=== PATIENT | male | born 1985 | race Caucasian/White ===

== ENCOUNTER 2021-06-27 08:39 | Outpatient (CLI) | payer OTHER ==
[2021-06-27] MEDS ORDERED: Iopamidol 370 76% 100 ML VIAL ONE (09:42)
== END 2021-06-27 08:40 | disposition home or self-care (01) ==
LOC: BICCT 08:39
PROVIDERS: ATTEND Internal Medicine Hematology & Oncology
DX: C20 Malignant neoplasm of rectum (principal); R97.0 Elevated carcinoembryonic antigen [CEA]; M89.9 Disorder of bone, unspecified; N13.5 Crossing vessel and stricture of ureter without hydronephrosis; K76.89 Other specified diseases of liver; N32.89 Other specified disorders of bladder; Z98.890 Other specified postprocedural states
CPT/HCPCS: 71260; 74177

== ENCOUNTER 2021-09-11 14:47 | Observation (INO) | payer OTHER ==
[~2021-09-11 14:47] MED LIST: Iopamidol-370 76% 500 ML 1 ML ONE
[2021-09-11] MEDS ORDERED: HYDROmorphone 0.5 MG/0.5 ML SYRINGE ONE (16:36)
[2021-09-11 16:45] LABS: Hemoglobin 11.6 g/dL (14.0-18.0); Mean Corpuscular HGB CONC 33.3 g/dL (32.0-36.0); Mean Corpuscular Hemoglobin 34.7 pg (27.0-31.0); Mean Platelet Volume 7.3 fL (7.4-10.4); Platelet Count 259 thou/uL (130-400); RBC Distribution Width 16.9 % (11.5-14.5); Red Blood Cell (RBC) Count 3.35 mill/uL (4.70-6.10); White Blood Cell (WBC) Count 15.5 thou/uL (4.8-10.8)
[2021-09-11 16:51] LABS: ALT (SGPT) 62 U/L (8-55); AST (SGOT) 61 U/L (5-34); Albumin 3.9 g/dL (3.5-5.0); Alkaline Phosphatase 283 U/L (40-110); Anion Gap 14 mmol/L (10-20); BUN (Urea Nitrogen) 19 mg/dL (8.9-20.6); Calc. Creatinine Clearance 0 mL/min (70-130); Calcium 10.1 mg/dL (7.8-10.44); Carbon Dioxide 25 mmol/L (22-29); Chloride 96 mmol/L (98-107); Globulin 3.7 g/dL (2.4-3.5); Glucose 102 mg/dL (70-105); Potassium 4.4 mmol/L (3.5-5.1); Protein, Total 7.6 g/dL (6.0-8.3); Sodium 131 mmol/L (136-145)
[2021-09-11 17:10] LABS: Band 14 % (5-11); Lymphocytes 3 % (21-51); MDiff Complete? YES; Monocytes 22 % (0-10); Neutrophil 57 % (42-75); Platelet Morphology Comment Appears Adequate; RBC Morphology Normal; Reactive Lymphocytes 4 % (0-10)
[2021-09-11] MEDS ORDERED: Ketorolac Tromethamine 30 MG/ML VIAL ONE (17:49)
[2021-09-11] MEDS ORDERED: HYDROmorphone 2 MG TAB PO SCH (19:30)
[2021-09-11 22:34] LABS: Bacteria/HPF None Seen HPF (None Seen); Bilirubin Negative (Negative); Blood, Urine Negative (Negative); Clarity Clear (Clear); Glucose, Urine (Dipstick) Normal (Negative); Ketone, Urine Negative (Negative); Leukocyte Negative Leu/uL (Negative); Nitrite Negative (Negative); Protein, Urine (Dipstick) 70 mg/dL (Neg-Trace); Squamous Epithelial 0-3 HPF (0-3)
[2021-09-11 22:36] LABS: Specific Gravity, Urine Greater than 1.065 (1.002-1.036); WBC/HPF 0-3 HPF (0-3)
[2021-09-11 22:46] LABS: SARS-CoV-2 NAA Rapid Test Not Detected (NotDetected)
[2021-09-11] MEDS ORDERED: Morphine 4 MG/ML VIAL SLOW IVP PRN (22:46)
[2021-09-11] MEDS ORDERED: Ondansetron PF 4 MG/2 ML Vial IVP PRN (23:00)
[2021-09-11] MEDS ORDERED: Ondansetron ODT 4 MG TAB SL PRN (23:00)
[2021-09-12] MEDS ORDERED: HYDROmorphone 0.5 MG/0.5 ML SYRINGE SLOW IVP PRN (00:06)
[2021-09-12 00:11] VITALS: BMI 29.8
[2021-09-12] MEDS ORDERED: Senokot 8.6 MG TAB PO PRN (01:00)
[2021-09-12] MEDS: HYDROmorphone 2 MG TAB PO PRN ×8 (01:06→22:19)
[2021-09-12] MEDS ORDERED: Sodium Chloride 0.9% 1,000 ML IV SCH (01:45)
[2021-09-12] MEDS: Acetaminophen 325 MG TAB PO PRN ×2 (03:00→16:23)
[2021-09-12] MEDS ORDERED: Ketorolac Tromethamine 30 MG/ML VIAL IVP PRN (04:14)
[2021-09-12 07:19] LABS: Mean Corpuscular HGB CONC 33.3 g/dL (32.0-36.0); Mean Corpuscular Hemoglobin 35.2 pg (27.0-31.0); Mean Platelet Volume 7.6 fL (7.4-10.4); Platelet Count 189 thou/uL (130-400); RBC Distribution Width 16.8 % (11.5-14.5); Red Blood Cell (RBC) Count 2.85 mill/uL (4.70-6.10); White Blood Cell (WBC) Count 9.3 thou/uL (4.8-10.8)
[2021-09-12 07:26] LABS: Anion Gap 13 mmol/L (10-20); BUN (Urea Nitrogen) 20 mg/dL (8.9-20.6); Calc. Creatinine Clearance 123 mL/min (70-130); Calcium 9.3 mg/dL (7.8-10.44); Carbon Dioxide 24 mmol/L (22-29); Chloride 98 mmol/L (98-107); Glucose 119 mg/dL (70-105); Sodium 131 mmol/L (136-145)
[2021-09-12] MEDS ORDERED: Enoxaparin Sodium 40 MG/0.4 ML SYRINGE SC SCH (09:00)
[2021-09-12 10:26] LABS: Band 23 % (5-11); Lymphocytes 5 % (21-51); MDiff Complete? YES; Monocytes 17 % (0-10); Neutrophil 54 % (42-75); Platelet Morphology Comment Appears Adequate; RBC Morphology Normal; Reactive Lymphocytes 1 % (0-10)
[2021-09-12] MEDS ORDERED: HYDROcodone/Acetaminophen 10/325 mg Tablet PO PRN (13:05)
[2021-09-12] MEDS ORDERED: Acetaminophen 500 MG TAB PO SCH (14:00)
[2021-09-12] MEDS ORDERED: Enoxaparin Sodium 120 MG/0.8 ML SYRINGE SC SCH (16:30)
[2021-09-12] MEDS ORDERED: Ketorolac Tromethamine 10 MG TAB PO SCH (19:15)
[2021-09-12] MEDS ORDERED: Non-Formulary Item 1 EACH (Zolpidem Tartrate [Zolpidem Tartrate] 10 MG Tablet) PO SCH (21:00)
[2021-09-12] MEDS ORDERED: Zolpidem Tartrate 5 MG TAB PO SCH (21:00)
[2021-09-13] MEDS: Ketorolac Tromethamine 10 MG TAB PO SCH ×3 (00:32→12:04)
[2021-09-13] MEDS: HYDROmorphone 2 MG TAB PO PRN ×6 (00:32→14:25)
[2021-09-13] MEDS ORDERED: Lidocaine 5% Patch TD SCH (09:00)
[2021-09-13] MEDS ORDERED: Enoxaparin Sodium 120 MG/0.8 ML SYRINGE SC SCH (09:00)
[2021-09-13] MEDS ORDERED: Enoxaparin Sodium 30 MG/0.3 ML SYRINGE SC SCH (09:00)
[2021-09-13] MEDS ORDERED: Citalopram 20 MG TAB PO SCH (09:00)
[2021-09-13 12:51] VITALS: BP 136/67; TEMP 97.5
[2021-09-13 14:31] LABS: Hemoglobin 10.5 g/dL (14.0-18.0); Mean Corpuscular HGB CONC 34.5 g/dL (32.0-36.0); Mean Corpuscular Hemoglobin 36.7 pg (27.0-31.0); Mean Platelet Volume 7.4 fL (7.4-10.4); Platelet Count 219 thou/uL (130-400); RBC Distribution Width 16.6 % (11.5-14.5); Red Blood Cell (RBC) Count 2.86 mill/uL (4.70-6.10); White Blood Cell (WBC) Count 7.2 thou/uL (4.8-10.8)
[2021-09-13 14:41] LABS: ALT (SGPT) 85 U/L (8-55); AST (SGOT) 56 U/L (5-34); Albumin 3.3 g/dL (3.5-5.0); Alkaline Phosphatase 231 U/L (40-110); Anion Gap 15 mmol/L (10-20); BUN (Urea Nitrogen) 15 mg/dL (8.9-20.6); Bilirubin, Total 0.4 mg/dL (0.2-1.2); Calc. Creatinine Clearance 134 mL/min (70-130); Calcium 9.7 mg/dL (7.8-10.44); Carbon Dioxide 25 mmol/L (22-29); Chloride 98 mmol/L (98-107); Globulin 3.5 g/dL (2.4-3.5); Glucose 100 mg/dL (70-105); Potassium 4.1 mmol/L (3.5-5.1); Protein, Total 6.8 g/dL (6.0-8.3); Sodium 134 mmol/L (136-145)
[2021-09-13 14:43] LABS: Anisocytosis SLIGHT = 6-15 cells (100X) (0-5/hpf); Band 4 % (5-11); Lymphocytes 13 % (21-51); MDiff Complete? YES; Macrocytosis SLIGHT = 6-15 cells (100X) (0-5/hpf); Monocytes 15 % (0-10); Neutrophil 68 % (42-75); Platelet Morphology Comment Appears Adequate; Polychromasia SLIGHT = 2-3 cells (100X) (0-2/hpf)
[2021-09-13] MEDS ORDERED: Transdermal Patch Removal TOP SCH (21:00)
== END 2021-09-13 15:12 | disposition home or self-care (01) ==
LOC: ERS 14:47 → MSONC 21:42
PROVIDERS: ADMIT Internal Medicine; ATTEND Family Medicine
DX: G89.3 Neoplasm related pain (acute) (chronic) (principal); M79.604 Pain in right leg; R10.31 Right lower quadrant pain; R10.2 Pelvic and perineal pain; C20 Malignant neoplasm of rectum; C79.89 Secondary malignant neoplasm of other specified sites; C77.5 Secondary and unspecified malignant neoplasm of intrapelvic lymph nodes; M54.31 Sciatica, right side; N13.30 Unspecified hydronephrosis; N28.1 Cyst of kidney, acquired; K76.0 Fatty (change of) liver, not elsewhere classified; R91.8 Other nonspecific abnormal finding of lung field; F17.210 Nicotine dependence, cigarettes, uncomplicated; D72.825 Bandemia; D53.9 Nutritional anemia, unspecified; E87.1 Hypo-osmolality and hyponatremia; Z79.899 Other long term (current) drug therapy; Z88.5 Allergy status to narcotic agent; Z88.8 Allergy status to other drugs, medicaments and biological substances; Z90.49 Acquired absence of other specified parts of digestive tract; Z93.3 Colostomy status; Z20.822 Contact with and (suspected) exposure to COVID-19
CPT/HCPCS: 36415; 74177; 80048; 80053; 81003; 81015; 85025; 93005; 96372; 96374; 96375; 96376; G0378; J1170; J1650; J1885; J7050; Q9967; U0002

== ENCOUNTER 2021-10-12 02:40 | Observation (INO) | payer MEDICAID, OTHER ==
[2021-10-12 05:58] LABS: Anion Gap 11 mmol/L (10-20); BUN (Urea Nitrogen) 11 mg/dL (8.9-20.6); Calc. Creatinine Clearance 0 mL/min (70-130); Calcium 9.9 mg/dL (7.8-10.44); Carbon Dioxide 32 mmol/L (22-29); Chloride 96 mmol/L (98-107); Glucose 89 mg/dL (70-105); Potassium 3.8 mmol/L (3.5-5.1); Sodium 135 mmol/L (136-145)
[2021-10-12 06:58] LABS: Bilirubin Negative (Negative); Blood, Urine 3+ (Negative); Clarity Turbid (Clear); Glucose, Urine (Dipstick) Normal (Negative); Ketone, Urine Negative (Negative); Leukocyte 25 Leu/uL (Negative); Nitrite Negative (Negative); Protein, Urine (Dipstick) 50 mg/dL (Neg-Trace); RBC/HPF Greater than 50 HPF (0-3); Specific Gravity, Urine 1.014 (1.002-1.036); Squamous Epithelial None Seen HPF (0-3); Urobilinogen Normal mg/dL (Less than 2); WBC/HPF Greater than 50 HPF (0-3); pH, Urine 6.5 (5.0-9.0)
[2021-10-12 07:01] LABS: Bacteria/HPF 1+ HPF (None Seen)
[2021-10-12] MEDS ORDERED: cefTRIAXone\\ROCEPHIN 2 GM VIAL ONE (08:58)
[2021-10-12] MEDS ORDERED: fentaNYL 50 mcg/hour Patch TD SCH (09:00)
[2021-10-12 09:22] LABS: #Eosinphils 0.2 thou/uL (0.0-0.7); #Lymphocytes 0.8 thou/uL (1.20-3.40); #Monocytes 1.2 thou/uL (0.11-0.59); #Neutrophils 7.2 thou/uL (1.40-6.50); %Basophils 0.3 % (0.0-1.0); %Eosinophils 2.3 % (0.0-10.0); %Lymphocytes 8.9 % (21.0-51.0); %Monocytes 12.6 % (0.0-10.0); %Neutrophils 75.9 % (42.0-75.0); Hemoglobin 10.3 g/dL (14.0-18.0); Mean Corpuscular HGB CONC 33.3 g/dL (32.0-36.0); Mean Corpuscular Hemoglobin 34.9 pg (27.0-31.0); Mean Platelet Volume 7.1 fL (7.4-10.4); Platelet Count 419 thou/uL (130-400); RBC Distribution Width 15.1 % (11.5-14.5); Red Blood Cell (RBC) Count 2.94 mill/uL (4.70-6.10); White Blood Cell (WBC) Count 9.5 thou/uL (4.8-10.8)
[2021-10-12] MEDS ORDERED: Senokot S 8.6-50 MG TAB PO PRN (09:32)
[2021-10-12] MEDS ORDERED: Ondansetron PF 4 MG/2 ML Vial IVP PRN (09:32)
[2021-10-12] MEDS ORDERED: HYDROmorphone 2 MG TAB PO PRN ×4 (09:44→14:30)
[2021-10-12 11:21] VITALS: BMI 28.5
[2021-10-12] MEDS: Gabapentin 300 MG CAP PO SCH ×4 (11:58→23:16)
[2021-10-12] MEDS ORDERED: Non-Formulary Item 1 EACH (Naloxone Hcl [Narcan] 4 MG Spray) FS PRN (12:39)
[2021-10-12] MEDS: HYDROmorphone 2 MG TAB PO PRN ×4 (14:49→21:52)
[2021-10-12] MEDS: Ketorolac Tromethamine 10 MG TAB PO SCH ×2 (18:14→23:14)
[2021-10-12] MEDS ORDERED: fentaNYL 100 mcg/hour Patch TD SCH ×2 (20:30→22:00)
[2021-10-12] MEDS ORDERED: fentaNYL 75 mcg/hour Patch TD SCH ×2 (20:45→22:00)
[2021-10-12] MEDS ORDERED: Zolpidem Tartrate 5 MG TAB PO SCH (21:00)
[2021-10-12] MEDS ORDERED: Non-Formulary Item 1 EACH (Zolpidem Tartrate [Zolpidem Tartrate] 10 MG Tablet) PO SCH (21:00)
[2021-10-12] MEDS ORDERED: Naloxone HCl 0.4 mg/ml Vial IV PRN (22:28)
[2021-10-12] MEDS ORDERED: tiZANidine HCl 4 MG TAB PO SCH (23:00)
[2021-10-12] MEDS ORDERED: Gabapentin 300 MG CAP PO SCH (23:15)
[2021-10-13] MEDS: HYDROmorphone 2 MG TAB PO PRN ×4 (00:32→09:44)
[2021-10-13 06:33] LABS: Hemoglobin 9.9 g/dL (14.0-18.0); Mean Corpuscular HGB CONC 32.7 g/dL (32.0-36.0); Mean Corpuscular Hemoglobin 34.7 pg (27.0-31.0); Platelet Count 356 thou/uL (130-400); RBC Distribution Width 15.1 % (11.5-14.5); Red Blood Cell (RBC) Count 2.84 mill/uL (4.70-6.10)
[2021-10-13] MEDS: Ketorolac Tromethamine 10 MG TAB PO SCH ×2 (06:38→11:20)
[2021-10-13 06:53] LABS: Anion Gap 13 mmol/L (10-20); BUN (Urea Nitrogen) 15 mg/dL (8.9-20.6); Band 3 % (5-11); Calc. Creatinine Clearance 115 mL/min (70-130); Calcium 9.3 mg/dL (7.8-10.44); Carbon Dioxide 28 mmol/L (22-29); Chloride 98 mmol/L (98-107); Eosinophils 11 % (0-10); Glucose 99 mg/dL (70-105); Lymphocytes 17 % (21-51); MDiff Complete? YES; Monocytes 14 % (0-10); Myelocyte 2 % (0-0); Neutrophil 53 % (42-75); Potassium 4.2 mmol/L (3.5-5.1); Sodium 135 mmol/L (136-145)
[2021-10-13] MEDS ORDERED: hydrALAZINE 20 MG/ML VIAL SLOW IVP PRN (08:29)
[2021-10-13] MEDS ORDERED: Hydrocerin (Eucerin) Cream 120 gm Jar TOP PRN (08:29)
[2021-10-13] MEDS ORDERED: Loperamide HCl 2 MG CAP PO PRN (08:29)
[2021-10-13] MEDS ORDERED: diphenhydrAMINE 50 MG/ML VIAL IVP PRN (08:29)
[2021-10-13] MEDS ORDERED: Calcium Carbonate 500 MG ChewTAB PO PRN (08:29)
[2021-10-13] MEDS ORDERED: Artificial Tear Sol 15 ML BOT EA EYE PRN (08:29)
[2021-10-13] MEDS ORDERED: Sodium Chloride 0.65% Nasal 44 ML BOT EA NARE PRN (08:29)
[2021-10-13] MEDS ORDERED: tiZANidine HCl 4 MG TAB PO SCH (09:00)
[2021-10-13] MEDS ORDERED: Lisinopril 20 MG TAB PO SCH (09:00)
[2021-10-13] MEDS ORDERED: Multivitamin W/ Minerals 1 TAB PO SCH (09:00)
[2021-10-13] MEDS ORDERED: Cyanocobalamin (Vitamin B-12) 1,000 MCG TAB PO SCH (09:00)
[2021-10-13] MEDS ORDERED: Citalopram 20 MG TAB PO SCH (09:00)
[2021-10-13] MEDS ORDERED: cefTRIAXone\\ROCEPHIN 1 GM in Sodium Chloride 0.9% 100 ML IVPB SCH (09:00)
[2021-10-13] MEDS ORDERED: Folic Acid 1 MG TAB PO SCH (09:00)
[2021-10-13] MEDS: Gabapentin 300 MG CAP PO SCH (09:43)
[2021-10-13 12:45] VITALS: BP 93/46; TEMP 97.7
== END 2021-10-13 14:30 | disposition home or self-care (01) ==
LOC: ERS 02:40 → ERHOLD 09:22 → T4-B 11:12
PROVIDERS: ADMIT Hospitalist; ATTEND Internal Medicine
DX: M79.604 Pain in right leg (principal); N39.0 Urinary tract infection, site not specified; I10 Essential (primary) hypertension; C18.9 Malignant neoplasm of colon, unspecified; C79.11 Secondary malignant neoplasm of bladder; C79.51 Secondary malignant neoplasm of bone; C79.82 Secondary malignant neoplasm of genital organs; F12.10 Cannabis abuse, uncomplicated; G89.4 Chronic pain syndrome; G62.9 Polyneuropathy, unspecified; Z66 Do not resuscitate; Z79.01 Long term (current) use of anticoagulants; Z79.899 Other long term (current) drug therapy
CPT/HCPCS: 36415; 70450; 80048; 81003; 81015; 83605; 85025; 87040; 87086; 94760; 96365; 96375; 96376; G0378; J0696; J2405; J3490